=== PATIENT | male | born 1950 | race Caucasian/White ===

== ENCOUNTER 2016-11-25 13:27 | Emergency (ER) | payer MEDICARE ==
[~2016-11-25] VITALS: Ht 170.2 cm; Wt 70.0 kg
[2016-11-25 13:30] VITALS: BP 185/85; PULSE 78; RESP 16; TEMP 98.4; O2SAT 98
--- NOTE | 2016-11-25 13:33 | PD ---
Physical Exam Date Seen by Provider: Nov 25, 2016 Time Seen by Provider: 13:32 Data Data Last Documented VS Vital Signs Date Time Temp Pulse Resp B/P (MAP) Pulse Ox O2 Delivery O2 Flow Rate FiO2 11/25/16 13:30 98.4 78 16 185/85 (118) 98 MDM Supervised Visit with MIKE: No Narrative Course 66-year-old male presents to ED for evaluation of rash of bilateral forearms, right ear, the back of the neck x for 5 days. Also complains of left shoulder pain. Endorses previous injury to the area, states that pain is infringing on his ability to work. Vitals reviewed. Patient seen in triage, awaiting bed placement. Flores Roberts Nov 25, 2016 13:33
[2016-11-25] MEDS ORDERED: CEPH-460 PO (16:04)
--- NOTE | 2016-11-25 16:04 | PD ---
HPI Chief Complaint: Skin Problem Time Seen by Provider: 15:52 Travel History International Travel<30 days: No Contact w/Intl Traveler<30days: No Traveled to known affect area: No History of Present Illness HPI 66-year-old male presents emergency department for evaluation of multiple sores on bilateral upper extremities. Patient reports he has been sleeping at a local motel and believes they have bedbugs. The lesions are pruritic and he has been scratching them with his finger nails. Over the last 5 days. Become increasingly more painful and red prompting his visit today. He believes he has a staph infection. He reports he's had multiple staph infections in the past. He denies fever or chills. He also reports left shoulder pain which is chronic and exacerbated by his job where he does hours of heavy lifting. Symptom severity is mild. No alleviating factors. Duration 5 days. PFSH Past Medical History Cardiovascular Problems: Yes (HBP) Diminished Hearing: No Musculoskeletal: Yes (CHRONIC BACK PAIN) Tetanus Vaccination: > 5 Years Influenza Vaccination: Yes Past Surgical History Cardiac Surgery: Yes (ABLATION) Social History Alcohol Use: Yes (rare) Tobacco Use: Yes Substance Use: No Allergies-Medications (Allergen,Severity, Reaction): Coded Allergies: No Known Allergies (Unverified , 11/25/16) Reported Meds & Prescriptions Reported Meds & Active Scripts Active No Active Prescriptions or Reported Medications Review of Systems Except as stated in HPI: all other systems reviewed are Neg General / Constitutional: No: Fever Physical Exam Narrative GENERAL: Well-nourished, well-developed patient. SKIN: Focused skin assessment warm/dry. Numerous lesions to bilateral upper extremities with scabs in place. The areas are erythematous and are mildly tender to the touch. There is no induration, fluctuance or surrounding cellulitis. HEAD: Normocephalic. EYES: No scleral icterus. No injection or drainage. NECK: Supple, trachea midline. No JVD or lymphadenopathy. CARDIOVASCULAR: Regular rate and rhythm without murmurs, gallops, or rubs. RESPIRATORY: Breath sounds equal bilaterally. No accessory muscle use. GASTROINTESTINAL: Abdomen soft, non-tender, nondistended. MUSCULOSKELETAL: No cyanosis, or edema. Left shoulder is nontender to palpation. He has full range of motion. Data Data Last Documented VS Vital Signs Date Time Temp Pulse Resp B/P (MAP) Pulse Ox O2 Delivery O2 Flow Rate FiO2 11/25/16 15:00 76 17 11/25/16 13:30 98.4 185/85 (118) 98 MDM Medical Decision Making Medical Screen Exam Complete: Yes Emergency Medical Condition: Yes Differential Diagnosis Insect bites, wound infection, cellulitis, acute on chronic left shoulder pain Narrative Course 66-year-old male here for evaluation of possible infected insect bites to his upper extremity is. On exam patient has multiple erythematous lesions to bilateral upper extremities with central scabs. The areas are consistent with insect bites with localized trauma caused by scratching. There is no evidence of abscess formation or cellulitis. These appear to be mild wound infections. Patient be treated with Keflex. He was instructed to take NSAIDs as needed for his chronic left shoulder pain. Diagnosis Primary Impression: Infected insect bite Qualified Codes: W57.XXXA - Bitten or stung by nonvenomous insect and other nonvenomous arthropods, initial encounter Additional Impression: Shoulder pain, left Qualified Codes: M25.512 - Pain in left shoulder Referrals: [facility] Additional Instructions: Take the antibiotics as prescribed. Take [id number] Motrin 600 800 mg every 6-8 hours as needed for pain for shoulder. Follow-up with the [facility] Scripts Cephalexin (Keflex) 500 Mg Cap 500 MG PO Q6H for Infection for 7 Days, #28 CAP 0 Refills Prov: Karol Koo 11/25/16 Disposition: 01 DISCHARGE HOME Condition: Stable Karol Koo Nov 25, 2016 16:04
[2016-11-25 16:08] VITALS: BP 152/83; TEMP 97.8
== END 2016-11-25 16:10 | disposition home or self-care (01) ==
LOC: NEPD 13:27
DX: M25.512 Pain in left shoulder (principal); Z72.0 Tobacco use
CPT/HCPCS: 99283

== ENCOUNTER 2016-12-13 12:54 | Emergency (ER) | payer MEDICARE ==
[~2016-12-13] VITALS: Ht 170.2 cm; Wt 70.0 kg
[~2016-12-13 12:54] MED LIST: CEPH-460 PO
[2016-12-13 13:10] VITALS: BP 157/81; PULSE 134; RESP 18; TEMP 98.4; O2SAT 99
[2016-12-13] MEDS ORDERED: SODIUM CHLOR 0.9% 1000 ML INJ 1,000 ML IV ONE (13:19)
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
[2016-12-13] MEDS ORDERED: SODIUM CHLORIDE 0.9% FLUSH 10 ML FLUSH IVF PRN (13:30)
[2016-12-13 13:53] LABS: AUTOMATED NEUTROPHIL # 6.4 TH/MM3 (1.8-7.7); BASOPHIL % 0.3 % (0.0-2.0); EOSINOPHIL # 0.2 TH/MM3 (0-0.4); EOSINOPHIL % 1.8 % (0.0-4.0); HEMATOCRIT 37.5 % (39.0-51.0); HEMO FLAGS DIFF FINAL; LYMPH % 37.6 % (9.0-44.0); LYMPHOCYTE # 4.8 TH/MM3 (1.0-4.8); MEAN CELL VOLUME 92.9 FL (80.0-100.0); MEAN CORPUSCULAR HEMOGLOBIN 31.3 PG (27.0-34.0); MEAN CORPUSCULAR HGB CONC 33.7 % (32.0-36.0); MONO % 10.7 % (0.0-8.0); NEUT % 49.6 % (16.0-70.0); PLATELET COUNT 252 TH/MM3 (150-450); RED BLOOD COUNT 4.03 MIL/MM3 (4.50-5.90); RED CELL DISTRIBUTION WIDTH 13.2 % (11.6-17.2); WHITE BLOOD COUNT 12.8 TH/MM3 (4.0-11.0)
[2016-12-13 14:00] LABS: APTT (PATIENT) 24.7 SEC (24.3-30.1); PROTHROMBIN TIME - PATIENT 11.3 SEC (9.8-11.6)
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
[2016-12-13 14:13] LABS: ANION GAP 13 MEQ/L (5-15); AST (GOT) 36 U/L (15-37); BLOOD UREA NITROGEN 22 MG/DL (7-18); CHLORIDE 102 MEQ/L (98-107); GLOMERULAR FILTRATION RATE 63 ML/MIN (>89); POTASSIUM 3.2 MEQ/L (3.5-5.1); SODIUM (NA) 132 MEQ/L (136-145)
[2016-12-13 14:15] LABS: ALT (GPT) 29 U/L (12-78)
[2016-12-13] MEDS ORDERED: LORazepam 2 MG/ML VIAL IV PUSH ONE (14:15)
[2016-12-13 14:18] LABS: ALCOHOL LESS THAN 3 MG/DL (0-5)
[2016-12-13 14:19] LABS: ALKALINE PHOSPHATASE 72 U/L (45-117); CREATINE KINASE 465 U/L (39-308); TOTAL BILIRUBIN ADULT 0.5 MG/DL (0.2-1.0)
[2016-12-13 14:23] LABS: ACETAMINOPHEN LESS THAN 2.0 MCG/ML (10.0-30.0)
[2016-12-13 14:32] LABS: CKMB 7.4 NG/ML (0.5-3.6)
[2016-12-13] MEDS ORDERED: SUBO8MIS SL (14:37)
[2016-12-13] MEDS ORDERED: METO25TA3 PO (14:37)
[2016-12-13 14:38] VITALS: BP 178/82; PULSE 124; RESP 17; O2SAT 99
[2016-12-13 15:12] LABS: BACTERIA, URINE MOD /hpf; BLOOD, URINE SMALL (NEG); COMMENT (UR) CULTURE INDICATED; CULTURE IF INDICATED CULTURE INDICATED; GLUCOSE,URINE NEG (NEG); GRANULAR CAST, URINE 6 /lpf; HYALINE CAST, URINE 7 /lpf (RARE); KETONE, URINE NEG (NEG); MUCUS URINE FEW /lpf (OCC); NITRITE,URINE POS (NEG); URINE COLOR YELLOW (YELLW/STRAW)
--- NOTE | 2016-12-14 11:23 | EKG ---
Date Performed: 12/13/2016 Time Performed: 14:25:40 PTAGE: 66 years EKG: SINUS TACHYCARDIA INCOMPLETE RIGHT BUNDLE BRANCH BLOCK ABNORMAL RHYTHM ECG NO PREVIOUS TRACING DOCTOR: Young Feliz Interpretating Date/Time 12/14/2016 11:21:50
== END 2016-12-13 15:24 | disposition left against medical advice (07) ==
LOC: NEPC 12:54
DX: F19.10 Other psychoactive substance abuse, uncomplicated (principal); Z53.21 Procedure and treatment not carried out due to patient leaving prior to being seen by health care provider; F11.23 Opioid dependence with withdrawal; T50.904A Poisoning by unspecified drugs, medicaments and biological substances, undetermined, initial encounter; B96.20 Unspecified Escherichia coli [E. coli] as the cause of diseases classified elsewhere; R94.31 Abnormal electrocardiogram [ECG] [EKG]; G89.29 Other chronic pain; M54.9 Dorsalgia, unspecified; Z72.0 Tobacco use
CPT/HCPCS: 71010; 80053; 80307; 81001; 82550; 82552; 84484; 85025; 85610; 85730; 87077; 87086; 87186; 93005; 96360; 96361; 99285; J7030